=== PATIENT | male | born 1960 | race Caucasian/White ===

== ENCOUNTER 2022-02-15 09:00 | Outpatient (RCR) | payer BC, SELFPAY ==
--- NOTE | 2022-01-14 11:05 | HP.PTEVAL ---
Patient's Visit Information ABEBA EARLY is a 61 year old M referred to Physical Therapy by ELIZABETH PANTOJA with a diagnosis of L TKA 01/10/22. Date of Evaluation: 01/14/22 Physical Therapist: Stoney Frazier, PT, ATC - Visit Plan Frequency: 2-3x /Week Duration: 4-6 Weeks Plan: L knee PROM/mobs, stretching and strengthening, balance and proprio, core strengthening, nustep, and HEP - Subjective DOS: 01/10/22. Pt reports he had a L TKA performed at that time. Pt reports a long Hx of L knee pain prior to this surgery. Pt notes he had tears in his meniscus, a bakers cyst, and was bone on bone. Pt reports he was very limited prior to surgery as he had difficulty with squatting activity secondary to pain. Pt reports some marsha-incisional numbness, but no other L LE tingling or numbness. Pt reports he is the most sore where the tourniquet was. Pt reports he is retired at this time. Pt was in education prior to retiring. Pt reports he and his live in a [place]. pt has 2 steps to get into his living quarters, and notes he can negotiate them one step at a time. No sleep difficulty at this time secondary to pain. Pt reports his greatest complaint at this time is stiffness. - Pain L knee Pain Intensity (Out of 10): 0 Pain Intensity Range: 4 - Objective Neuro: B LE sensation is WNL to light touch. Girth at joint line: R knee 42 cm, L knee 47 cm. ROM: R knee 0-117, L knee 0-14-88 degrees. MMT: L knee flex= 25, ext= 24; R knee flex= 35, ext= 42 #F. Gait: Pt enters the clinic with the use of a WW. Able to ambulate from waiting room to eval room approximately 140 feet. - Balance/Special Test Scores Lower Extremity Functional Score: 18 - Goals Goal 1:: Decrease L knee pain x 50% to aid with ambulation Goal Time Frame: 4-6 Weeks Goal 2:: Increase L knee ROM x 30 degrees to aid with restoring a more normalized gait pattern Goal Time Frame: 4-6 Weeks Goal 3:: Increase L knee strength x 10#F to aid with stair negotiation Goal Time Frame: 4-6 Weeks Goal 4:: I with HEP Goal Time Frame: 4-6 Weeks - Rehabilitation Potential Physical Therapy Diagnosis: Pt has L knee pain, weakness, and limited ROM secondary to L TKA Rehabilitation Potential: Good - Anticipated Interventions Patient/Client Instruction: Educate patient on: Condition, Plan of Care For the Purpose of:: To improve self management Therapeutic Exercise to Include: Strength training, Endurance training, Balance training, Flexibilty training, Gait and locomotor training, Active ROM, Dynamic Lumbar Stabilization For the Purpose of:: To decrease pain, To increase ROM, To improve muscle performance and motor function Cryotherapy (ice pack, ice massage): Yes For the Purpose of:: To decrease pain Thank you for the opportunity to evaluate your patient. For Medicare and Medicare HMO plans, please review the plan of care and approve it. It will need to be FAXED BACK to us at [phone] for Medicare purposes. For Medicare only, by signing this I certify the plan of care. Please let me know if there are questions or concerns regarding this plan of care. Physician Signature: Date:
--- NOTE | 2022-06-14 07:25 | HP.PTDCSUM ---
It has been my pleasure to treat ABEBA EARLY referred by ELIZABETH PANTOJA, with the diagnosis of L TKA 01/10/22 for a total of 11 visit(s). Discharge Date: Please see the following information for a summary of their discharge status. Subjective: I am ready to be done L knee Pain Intensity (Out of 10): 0 % Improvement: 90 Objective/Function: L knee pain 0/10. Pt is I with HEP. L knee ROM : flex= 115, ext= -5. L knee MMT: flex= 30, ext= 40 #F. Pt is I with HEP Goal 1:: Decrease L knee pain x 50% to aid with ambulation Goal Progress: Goal Met Goal 2:: Increase L knee ROM x 30 degrees to aid with restoring a more normalized gait pattern Goal Progress: Goal Met Goal 3:: Increase L knee strength x 10#F to aid with stair negotiation Goal Progress: Goal Met Goal 4:: I with HEP Goal Progress: Goal Met Plan: Discharge If there are questions or concerns regarding this patient's physical therapy, please feel free to call me at [phone]. Thank you for the referral of this patient. Sincerely, Stoney Frazier, PT, ATC Balance/Gait/Functional tests - Balance/Special Test Scores Lower Extremity Functional Score: 78
== END 2022-02-15 19:00 | disposition home or self-care (01) ==
LOC: PT 09:00
DX: Z47.1 Aftercare following joint replacement surgery (principal); Z96.652 Presence of left artificial knee joint
CPT/HCPCS: 97016; 97110; 97140; 97161; 97164